=== PATIENT | female | born 1965 | race Caucasian/White ===

== ENCOUNTER 2023-06-10 10:33 | Outpatient (CLI) | payer BC ==
[2023-06-10] MEDS ORDERED: Iopamidol 370 76% 100 ML VIAL ONE (15:21)
== END 2023-06-10 10:34 | disposition home or self-care (01) ==
LOC: CSHCT 10:33
PROVIDERS: ATTEND Family Medicine
DX: R19.00 Intra-abdominal and pelvic swelling, mass and lump, unspecified site (principal); Z98.890 Other specified postprocedural states; R59.0 Localized enlarged lymph nodes
CPT/HCPCS: 74178; 82565; Q9967

== ENCOUNTER 2023-07-13 13:02 | Outpatient (CLI) | payer BC ==
[~2023-07-13 13:02] MED LIST: Iopamidol 300 61% 100 ML VIAL FS ONE
== END 2023-07-13 13:03 | disposition home or self-care (01) ==
LOC: CSHCT 13:02
PROVIDERS: ATTEND Urology
DX: N39.41 Urge incontinence (principal)
CPT/HCPCS: 72194; Q9967